=== PATIENT | female | born 1985 | race Caucasian/White ===

== ENCOUNTER 2017-03-04 02:30 | Emergency (ER) | payer MEDICAID ==
[~2017-03-04] VITALS: Ht 165.1 cm; Wt 45.0 kg
[2017-03-04] MEDS ORDERED: SODIUM CHLORIDE 0.9% 1,000 ML IV ONE (02:50)
[2017-03-04] MEDS ORDERED: DICYCLOMINE 10 MG/5 ML ORAL SYR PO ONE (03:00)
[2017-03-04] MEDS ORDERED: ONDANSETRON HCL 4MG/2ML VIAL IV ONE (03:00)
[2017-03-04 03:18] LABS: BASOPHILS % 0.4 % (0.0-2.0); EOSINOPHILS % 0.1 % (0.0-5.0); HEMATOCRIT. 39.1 % (36.0-48.0); HEMOGLOBIN. 13.4 g/dL (12.0-16.0); LYMPHOCYTES % 13.8 % (20.0-50.0); MEAN CORPUSCULAR HEMOGLOBIN 31.8 pg (28.0-32.0); MEAN CORPUSCULAR VOLUME 92.5 fL (81.0-99.0); MEAN PLATELET VOLUME 9.3 fl (7.4-10.4); MONOCYTES % 4.9 % (2.0-8.0); NEUTROPHILS % 80.8 % (40.0-76.0); PLATELET 171 x1000/uL (130-400); RED BLOOD CELL COUNT 4.23 mill/uL (4.2-5.4); RED CELL DISTRIBUTION WIDTH 14.5 % (11.6-14.6)
[2017-03-04 03:23] LABS: CHLORIDE 103 mEq/L (98-107); INR 1.1; PROTHROMBIN TIME 11.4 sec (9.4-11.6)
[2017-03-04 03:39] LABS: CARBON DIOXIDE 21 mEq/L (21-32)
[2017-03-04 03:46] LABS: B-HCG QUANTITATIVE 114680 mIU/mL (<3)
[2017-03-04 04:49] VITALS: BP 122/63
[2017-03-04] MEDS ORDERED: ONDANSETRON HCL 4MG/2ML VIAL IV STA (05:08)
== END 2017-03-04 06:09 | disposition home or self-care (01) ==
LOC: ER 02:40
DX: O21.0 Mild hyperemesis gravidarum (principal); O26.891 Other specified pregnancy related conditions, first trimester; R10.30 Lower abdominal pain, unspecified; F12.10 Cannabis abuse, uncomplicated; Z3A.01 Less than 8 weeks gestation of pregnancy
CPT/HCPCS: 36415; 80053; 83690; 84702; 85025; 85610; 86900; 86901; 96361; 96374; 96376; 99285; J2405; J7030; Z7610

== ENCOUNTER 2017-03-06 21:45 | Emergency (ER) | payer MEDICAID ==
[~2017-03-06] VITALS: Ht 162.6 cm; Wt 50.0 kg
[2017-03-06] MEDS ORDERED: SODIUM CHLORIDE 0.9% 1,000 ML IV ONE (22:34)
[2017-03-06 23:28] LABS: CHLORIDE 104 mEq/L (98-107)
[2017-03-06 23:34] LABS: BASOPHILS % 0.2 % (0.0-2.0); HEMATOCRIT. 39.6 % (36.0-48.0); HEMOGLOBIN. 13.5 g/dL (12.0-16.0); LYMPHOCYTES % 11.4 % (20.0-50.0); MEAN CORPUSCULAR HEMOGLOBIN 31.8 pg (28.0-32.0); MEAN CORPUSCULAR VOLUME 93.5 fL (81.0-99.0); MEAN PLATELET VOLUME 9.7 fl (7.4-10.4); MONOCYTES % 4.8 % (2.0-8.0); NEUTROPHILS % 83.6 % (40.0-76.0); PLATELET 172 x1000/uL (130-400); RED BLOOD CELL COUNT 4.23 mill/uL (4.2-5.4)
[2017-03-06 23:45] LABS: CARBON DIOXIDE 23 mEq/L (21-32); ETHANOL BLOOD < 10 mg/dL
[2017-03-06 23:58] LABS: B-HCG QUANTITATIVE 120713 mIU/mL (<3)
[2017-03-07] MEDS ORDERED: ONDANSETRON HCL 4MG/2ML VIAL IV NR (00:13)
[2017-03-07] MEDS ORDERED: DIPHENHYDRAMINE 50MG/ML VIAL IV NR (00:15)
[2017-03-07] MEDS ORDERED: DICYCLOMINE HCL 10MG CAPSULE PO NR (00:15)
[2017-03-07] MEDS ORDERED: KCL 20MEQ/100ML PREMIX 100 ML IV NR (00:15)
[2017-03-07 03:30] VITALS: BP 128/74
== END 2017-03-07 03:30 | disposition home or self-care (01) ==
LOC: ER 21:59
DX: O21.1 Hyperemesis gravidarum with metabolic disturbance (principal); O26.891 Other specified pregnancy related conditions, first trimester; E87.6 Hypokalemia; R10.9 Unspecified abdominal pain; Z3A.01 Less than 8 weeks gestation of pregnancy
CPT/HCPCS: 36415; 76700; 80053; 83690; 84702; 85025; 96374; 96375; 99285; G0482; J1200; J2405; J7030

== ENCOUNTER 2017-09-10 17:07 | Emergency (ER) | payer MEDICAID ==
[~2017-09-10] VITALS: Ht 165.1 cm; Wt 63.0 kg
[2017-09-10] MEDS ORDERED: SODIUM CHLORIDE 0.9% 1,000 ML IV ONE ×2 (19:08)
[2017-09-10] MEDS ORDERED: ONDANSETRON HCL 4MG/2ML VIAL IV STA (19:08)
[2017-09-10] MEDS ORDERED: DICYCLOMINE 10 MG/5 ML ORAL SYR PO ONE (19:15)
[2017-09-10] MEDS ORDERED: VISCOUS LIDOCAINE 2% 15 ML UDC PO ONE (19:15)
[2017-09-10] MEDS ORDERED: MAGNESIUM/ALUMINUM HYDROXIDE/SIMETHICONE 30ML UDC PO ONE (19:15)
[2017-09-10 20:12] LABS: HEMATOCRIT. 38.6 % (36.0-48.0); HEMOGLOBIN. 12.8 g/dL (12.0-16.0); MEAN CORPUSCULAR HEMOGLOBIN 30.3 pg (28.0-32.0); MEAN CORPUSCULAR VOLUME 91.3 fL (81.0-99.0); MEAN PLATELET VOLUME 8.5 fl (7.4-10.4); PLATELET 202 x1000/uL (130-400); RED BLOOD CELL COUNT 4.23 mill/uL (4.2-5.4); RED CELL DISTRIBUTION WIDTH 17.7 % (11.6-14.6)
[2017-09-10 20:15] LABS: CHLORIDE 106 mEq/L (98-107)
[2017-09-10 20:17] LABS: PROTHROMBIN TIME 10.7 sec (9.4-11.6)
[2017-09-10 20:21] LABS: ETHANOL BLOOD < 10 mg/dL
[2017-09-10 20:41] LABS: B-HCG QUANTITATIVE 117454 mIU/mL (<3)
[2017-09-10 20:44] LABS: PLATELET ESTIMATE NORMAL
[2017-09-10] MEDS ORDERED: SODIUM CHLORIDE 0.9% 1000ML BAG (SEPSIS BOLUS) IV ONE (23:30)
[2017-09-10] MEDS ORDERED: SODIUM CHLORIDE 0.9% 1,890 ML IV NR (23:45)
[2017-09-11 00:48] VITALS: BP 107/53
[2017-09-11 00:51] LABS: CLARITY URINE CLOUDY (CLEAR); COLOR URINE YELLOW (YELLOW); KETONES URINE 3+ (NEGATIVE); LEUKOCYTE ESTERASE URINE 2+ (NEGATIVE); NITRITE URINE NEGATIVE (NEGATIVE); OCCULT BLOOD URINE NEGATIVE (NEGATIVE); PH URINE 6.5 (4.5-8.0); PROTEIN URINE 1+ (NEGATIVE); SPECIFIC GRAVITY URINE 1.025 (1.005-1.030)
[2017-09-11 01:10] LABS: *AMPHETAMINES SCREEN URINE NEGATIVE (NEGATIVE); *BARBITURATES SCREEN URINE NEGATIVE (NEGATIVE); *BENZODIAZEPINES SCREEN URINE NEGATIVE (NEGATIVE); *COCAINE SCREEN URINE NEGATIVE (NEGATIVE); METHADONE URINE SCREEN NEGATIVE (NEGATIVE); OPIATES URINE SCREEN NEGATIVE (NEGATIVE)
[2017-09-11 01:11] LABS: PHENCYCLIDINE URINE SCREEN NEGATIVE (NEGATIVE)
[2017-09-11 01:15] LABS: CANNABINOID URINE SCREEN PRESUMTIVE POSITIVE (NEGATIVE)
[2017-09-11] MEDS ORDERED: NITROFURANTOIN 100MG M/M CAPSULE PO SCH (01:22)
== END 2017-09-11 01:38 | disposition home or self-care (01) ==
LOC: ER 17:30
DX: O21.0 Mild hyperemesis gravidarum (principal); O26.891 Other specified pregnancy related conditions, first trimester; R10.9 Unspecified abdominal pain; Z3A.09 9 weeks gestation of pregnancy
CPT/HCPCS: 36415; 76801; 80053; 80305; 81003; 81025; 83605; 83690; 84702; 85025; 85610; 87077; 87086; 87186; 93005; 96361; 96374; 99285; G0482; J2405; J7030; Z7610

== ENCOUNTER 2021-01-15 15:20 | Emergency (ER) | payer MEDICAID ==
[~2021-01-15] VITALS: Ht 162.6 cm; Wt 55.0 kg
[2021-01-15] MEDS ORDERED: AMOX-424 MT (17:06)
[2021-01-15] MEDS ORDERED: BO1 TP (17:07)
[2021-01-15] MEDS ORDERED: TETANUS, DIPHTHERIA, PERTUSSIS VAC/PF 0.5ML (>10YR OLD) IM ONE (17:15)
[2021-01-15] MEDS ORDERED: BACITRACIN ZINC OINT UDPKT TOP ONE (17:15)
[2021-01-15] MEDS ORDERED: ACETAMINOPHEN WITH CODEINE 300/30MG TABLET PO ONE (17:15)
[2021-01-15 17:30] VITALS: BP 99/61
== END 2021-01-15 18:32 | disposition home or self-care (01) ==
LOC: ER 15:20
DX: M54.9 Dorsalgia, unspecified (principal)
CPT/HCPCS: 71101; 90471; 90715; 99283

== ENCOUNTER 2022-08-16 10:49 | Emergency (ER) | payer MEDICAID ==
[~2022-08-16] VITALS: Ht 162.6 cm; Wt 108.0 kg
[~2022-08-16 10:49] MED LIST: AMOX-424 MT; BO1 TP
[2022-08-16 10:53] VITALS: BP 109/36
[2022-08-16 11:12] LABS: BASOPHILS % 1.1 % (0.0-2.0); EOSINOPHILS % 1.3 % (0.0-5.0); HEMATOCRIT. 37.2 % (36.0-48.0); HEMOGLOBIN. 12.5 g/dL (12.0-16.0); LYMPHOCYTES % 40.9 % (20.0-50.0); MEAN CORPUSCULAR HEMOGLOBIN 32.1 pg (28.0-32.0); MEAN CORPUSCULAR VOLUME 95.9 fL (81.0-99.0); MEAN PLATELET VOLUME 8.6 fl (7.4-10.4); MONOCYTES % 7.2 % (2.0-8.0); NEUTROPHILS % 49.5 % (40.0-76.0); PLATELET 152 x1000/uL (130-400); RED BLOOD CELL COUNT 3.89 mill/uL (4.2-5.4); RED CELL DISTRIBUTION WIDTH 14.5 % (11.6-14.6)
[2022-08-16 11:28] LABS: CHLORIDE 110 mEq/L (98-107)
[2022-08-16 11:34] LABS: HCG SCREEN NEGATIVE
== END 2022-08-16 12:21 | disposition home or self-care (01) ==
LOC: ER 10:49
DX: N93.9 Abnormal uterine and vaginal bleeding, unspecified (principal)
CPT/HCPCS: 36415; 80053; 84703; 85025; 86850; 86900; 99283

== ENCOUNTER 2023-03-01 10:51 | Emergency (ER) | payer SELFPAY ==
[~2023-03-01] VITALS: Ht 152.4 cm; Wt 52.0 kg
[2023-03-01 10:57] VITALS: BP 155/131; PULSE 73; RESP 20; TEMP 98.4; O2SAT 100
[2023-03-01] MEDS ORDERED: OFLO5DRO4 EACH EAR (11:28)
[2023-03-01] MEDS ORDERED: OXYM30SP26 BOTHNSTRLS (11:28)
[2023-03-01] MEDS ORDERED: FLUT9.9S BOTHNSTRLS (11:28)
== END 2023-03-01 12:55 | disposition home or self-care (01) ==
LOC: ER 10:51
DX: H69.82 Other specified disorders of Eustachian tube, left ear (principal); H60.91 Unspecified otitis externa, right ear; D64.9 Anemia, unspecified; Z79.899 Other long term (current) drug therapy
CPT/HCPCS: 99283

== ENCOUNTER 2023-03-05 11:15 | Emergency (ER) | payer MEDICAID ==
[~2023-03-05] VITALS: Ht 162.6 cm; Wt 52.2 kg
[~2023-03-05 11:15] MED LIST changes: +FLUT9.9S BOTHNSTRLS; +OFLO5DRO4 EACH EAR; +OXYM30SP26 BOTHNSTRLS
[2023-03-05 11:16] VITALS: PULSE 65
[2023-03-05 11:21] VITALS: BP 117/52; RESP 16; TEMP 98.1; O2SAT 100
[2023-03-05] MEDS ORDERED: ACET-2708 MT (11:29)
[2023-03-05] MEDS ORDERED: AMOX-405 MT (11:29)
[2023-03-05] MEDS ORDERED: AMOX-494 MT (11:32)
== END 2023-03-05 11:39 | disposition home or self-care (01) ==
LOC: ER 11:15
DX: H66.92 Otitis media, unspecified, left ear (principal); J45.909 Unspecified asthma, uncomplicated
CPT/HCPCS: 99283

== ENCOUNTER 2023-12-28 15:01 | Emergency (ER) | payer MEDICAID ==
[~2023-12-28] VITALS: Ht 167.6 cm; Wt 60.0 kg
[~2023-12-28 15:01] MED LIST changes: +ACET-2708 MT; +AMOX-494 MT
[2023-12-28 15:05] VITALS: BP 108/67; PULSE 66; RESP 16; TEMP 98; O2SAT 99
[2023-12-28] MEDS: METOCLOPRAMIDE HCL 10MG/2ML VIAL IV ONE (15:57)
[2023-12-28] MEDS: SODIUM CHLORIDE 0.9% 1,000 ML IV ONE (15:57)
[2023-12-28 16:24] LABS: CLARITY URINE CLOUDY (CLEAR); COLOR URINE DARK YELLOW (YELLOW); GLUCOSE URINE NEGATIVE (NEGATIVE); KETONES URINE 4+ (NEGATIVE); LEUKOCYTE ESTERASE URINE 2+ (NEGATIVE); NITRITE URINE NEGATIVE (NEGATIVE); OCCULT BLOOD URINE 1+ (NEGATIVE); PH URINE 5.5 (4.5-8.0); PROTEIN URINE 1+ (NEGATIVE); SPECIFIC GRAVITY URINE 1.026 (1.005-1.030); UROBILINOGEN URINE 0.2 E.U./dL (0.2-1.0)
[2023-12-28 16:58] LABS: BACTERIA URINE 2+; SQUAMOUS EPITHELIAL CELL URINE 2+ /lpf (RARE/1+)
[2023-12-28 16:59] LABS: WBC URINE 25-50 /hpf (0-2)
[2023-12-28 17:17] LABS: *AMPHETAMINES SCREEN URINE NEGATIVE (NEGATIVE); *BARBITURATES SCREEN URINE NEGATIVE (NEGATIVE); *BENZODIAZEPINES SCREEN URINE NEGATIVE (NEGATIVE); *COCAINE SCREEN URINE NEGATIVE (NEGATIVE); CANNABINOID URINE SCREEN PRESUMPTIVE POSITIVE (NEGATIVE); ECSTASY MDMA SCREEN URINE NEGATIVE (NEGATIVE); METHADONE URINE SCREEN NEGATIVE (NEGATIVE); OPIATES URINE SCREEN NEGATIVE (NEGATIVE); PHENCYCLIDINE URINE SCREEN NEGATIVE (NEGATIVE)
[2023-12-28] MEDS: CEFTRIAXONE 1GM/50ML 50 ML IV ONE (17:28)
[2023-12-28] MEDS: ACETAMINOPHEN 325MG TABLET PO ONE (17:36)
[2023-12-28 17:41] LABS: HEMOGLOBIN. 12.7 g/dL (12.0-16.0); MEAN CORPUSCULAR HEMOGLOBIN 32.3 pg (28.0-32.0); MEAN CORPUSCULAR HGB CONC 33.5 g/dL (31.0-37.0); MEAN CORPUSCULAR VOLUME 96.5 fL (81.0-99.0); MEAN PLATELET VOLUME 8.5 fl (7.4-10.4); PLATELET 269 x1000/uL (130-400); RED BLOOD CELL COUNT 3.94 mill/uL (4.2-5.4); RED CELL DISTRIBUTION WIDTH 16.6 % (11.6-14.6); WHITE BLOOD COUNT 11.7 x1000/uL (4.5-11.0)
[2023-12-28 17:45] LABS: DIFFERENTIAL COMMENT 1
[2023-12-28 17:46] LABS: CHLORIDE 104 mEq/L (98-107); POTASSIUM 3.4 mEq/L (3.5-5.1); SODIUM 138 mEq/L (136-145)
[2023-12-28 17:47] LABS: CARBON DIOXIDE 20 mEq/L (21-32)
[2023-12-28 17:48] LABS: CALCIUM 9.6 mg/dL (8.7-10.4)
[2023-12-28 17:52] LABS: CREATININE 0.6 mg/dL (0.6-1.0)
[2023-12-28 17:53] LABS: GLUCOSE 96 mg/dL (70-105); UREA NITROGEN BLOOD 10 mg/dL (9-23)
[2023-12-28 18:00] LABS: PLATELET ESTIMATE NORMAL
[2023-12-28] MEDS: METOCLOPRAMIDE HCL 10MG/2ML VIAL IV NR (18:18)
[2023-12-28 18:38] LABS: B-HCG QUANTITATIVE 206000 mIU/mL (<3)
[2023-12-28] MEDS ORDERED: ACETAMINOPHEN 1000MG/100ML 100 ML IV ONE (19:00)
== END 2023-12-28 20:56 | disposition left against medical advice (07) ==
LOC: ER 15:01
DX: O20.0 Threatened abortion (principal); O21.0 Mild hyperemesis gravidarum; D64.9 Anemia, unspecified; Z79.899 Other long term (current) drug therapy; Z3A.10 10 weeks gestation of pregnancy
CPT/HCPCS: 80305; 80048; 81003; 84702; 85025; 86850; 86900; 86901; 87086; 87186; 87077; 36415; 76801; 96361; 96365; 96375; 96376; 99284; J0696; J2765; J7030; Z7610 ×2; J0131